=== PATIENT | female | born 1985 | race Caucasian/White ===

== ENCOUNTER 2019-09-25 21:47 | Emergency (ER) | payer MEDICAID ==
[~2019-09-25] VITALS: Ht 154.9 cm; Wt 72.5 kg
[2019-09-25] MEDS ORDERED: ALBU8.5H IH (21:52)
[2019-09-25] MEDS ORDERED: PERCOCET 5MG/325MG TAB PO ONE (22:15)
[2019-09-25] MEDS ORDERED: MORPHINE 10 MG/ML 1ML VIAL (J2270) IM ONE (22:45)
[2019-09-25 23:44] VITALS: BP 135/83
[2019-09-25] MEDS ORDERED: BOOSTRIX/ADACEL VACCINE (DIPHTH/PERTUSS/ACELL/TETANUS) 0.5ML SYR IM ONE (23:45)
[2019-09-25] MEDS ORDERED: BACITRACIN OINTMENT 30GM TUBE TOP STA (23:54)
[2019-09-26] MEDS ORDERED: IBUP-1022 PO (00:09)
[2019-09-26] MEDS ORDERED: HYDR-3713 PO (00:09)
[2019-09-26] MEDS ORDERED: NORCO 5/325MG TABLET (BULK FOR ED) PO ONE (00:15)
== END 2019-09-26 00:24 | disposition home or self-care (01) ==
LOC: M ED 21:47
DX: T23.202A Burn of second degree of left hand, unspecified site, initial encounter (principal); T23.029A Burn of unspecified degree of unspecified single finger (nail) except thumb, initial encounter; T31.0 Burns involving less than 10% of body surface; X08.8XXA Exposure to other specified smoke, fire and flames, initial encounter; Y92.89 Other specified places as the place of occurrence of the external cause; J45.909 Unspecified asthma, uncomplicated; Z91.018 Allergy to other foods; F17.210 Nicotine dependence, cigarettes, uncomplicated
CPT/HCPCS: 90471; 90715; 96372; 99283; J2270